=== PATIENT | male | born 1980 | race Two or more races ===

== ENCOUNTER → 2017-06-06 17:16 | Outpatient (CLI) | payer OTHER | END | disposition home or self-care (01) | LOC: RAD 17:16 | DX: M12.9 Arthropathy, unspecified (principal); M19.90 Unspecified osteoarthritis, unspecified site ==

== ENCOUNTER 2017-06-08 13:50 | Outpatient (CLI) | payer OTHER | END 2017-06-08 14:17 | disposition home or self-care (01) | LOC: MRI 13:50 | DX: M12.9 Arthropathy, unspecified (principal); M19.90 Unspecified osteoarthritis, unspecified site | CPT/HCPCS: 72141 ==

== ENCOUNTER 2017-06-12 10:14 | Outpatient (CLI) | payer OTHER | END 2017-06-12 15:25 | disposition home or self-care (01) | LOC: MRI 10:14 | DX: G43.909 Migraine, unspecified, not intractable, without status migrainosus (principal) | CPT/HCPCS: 70544 ==